=== PATIENT | male | born 1970 | race Caucasian/White ===

== ENCOUNTER → 2018-10-29 | Outpatient (CLI) | payer OTHER ==
[2018-10-29 11:02] LABS: HCT 46.7 % (39.0-53.0); HGB 15.2 gm/dL (13.0-17.5); MCH 29.4 pg (25.0-35.0); MCHC 32.6 g/dL (31.0-37.0); MCV 90.2 fL (80.0-100.0); Mean Platelet Volume 6.6; Platelet Count 266 k/uL (150-450); RBC 5.17 m/uL (4.30-5.90); RDW 14.7 % (11.5-15.5); WBC 6.1 k/uL (3.8-10.6)
[2018-10-29 15:35] LABS: African American GFR (CKD) 104.1 (60.0-200.0); Albumin 4.6 g/dL (3.80-4.90); Albumin/Globulin Ratio 2.88 (1.60-3.17); Anion Gap 6.3 mmol/L (4.00-12.00); Bilirubin, Conjugated 0.2 mg/dL (0.20-0.40); Bilirubin,Unconjugated 0.5 mg/dL; Calcium 9.5 mg/dL (8.7-10.3); Carbon Dioxide 26.7 mmol/L (21.6-31.8); Globulin 1.6 g/dL (1.6-3.3); Potassium 4.6 mmol/L (3.5-5.5); Total Bilirubin 0.7 mg/dL (0.2-1.2); Total Protein 6.2 g/dL (6.2-8.2)
[2018-11-01 18:21] LABS: Albumin, LC/MS/MS 4.5 g/dL (3.6-5.1); Testosterone, Free, LC/MS/MS 376.9 pg/mL (46.0-224.0); Testosterone, Total, LC/MS/MS 1821 ng/dL (250-1100)
== END | disposition home or self-care (01) ==
LOC: LABWHC1 10:31
PROVIDERS: ATTEND Urology
DX: E29.1 Testicular hypofunction (principal)
CPT/HCPCS: 36415; 80048; 80061; 80076; 82040; 82670; 84153; 84270; 84403; 85027

== ENCOUNTER → 2024-08-08 | Outpatient (CLI) | payer BC ==
[2024-08-08 15:36] LABS: Basophils # (A) 0.05 X 10*3/uL (0.00-0.10); Basophils % (A) 0.9 %; Eosinophils # (A) 0.14 X 10*3/uL (0.04-0.35); Eosinophils % (A) 2.6 %; HGB 15.5 g/dL (13.0-17.0); Lymphocytes # (A) 1.82 X 10*3/uL (0.90-5.00); Lymphocytes % (A) 34.4 %; MCH 29.6 pg (27.0-32.0); MCV 89.9 FL (80.0-97.0); Mean Platelet Volume 9.3 FL (9.5-12.2); Monocytes # (A) 0.52 X 10*3/uL (0.20-1.00); Monocytes % (A) 9.8 %; NRBC Per 100 WBC 0 X 10*3/uL (0.00-0.01); Neutrophils # (A) 2.75 X 10*3/uL (1.80-7.70); Neutrophils % (A) 52.1 %; Platelet Count 221 X 10*3/uL (140-440); RBC 5.23 X 10*6/uL (4.40-5.60); RDW 12.9 % (11.5-14.5); WBC 5.29 X 10*3/uL (4.50-10.00)
[2024-08-08 16:00] LABS: BUN/Creat Ratio 10.36 Ratio (12.00-20.00); Blood Urea Nitrogen 11.4 mg/dL (9.0-27.0); Chloride 105 mmol/L (96-109); Estradiol 25.5 pg/mL; Glucose 118 mg/dL (70-110); Potassium 4.8 mmol/L (3.5-5.5); Sodium 142 mmol/L (135-145)
[2024-08-08 16:01] LABS: ALT 41 U/L (10-49); AST 28 U/L (14-35); Albumin 4.7 g/dL (3.8-4.9); Albumin/Globulin Ratio 2.61 Ratio (1.60-3.17); Alkaline Phosphatase 65 U/L (41-126); Bilirubin, Conjugated <0.20 mg/dL (0.20-0.40); Bilirubin,Unconjugated >0.30 mg/dL (0.20-1.00); Calcium 9.9 mg/dL (8.7-10.3); Globulin 1.8 g/dL (1.6-3.3); Prostate Specific Antigen 1.26 ng/mL (0.000-3.500); Total Bilirubin 0.5 mg/dL (0.3-1.2); Total Protein 6.5 g/dL (6.2-8.2)
== END | disposition home or self-care (01) ==
LOC: LABWHC1 09:01
PROVIDERS: ATTEND Urology
DX: E29.1 Testicular hypofunction (principal)
CPT/HCPCS: 36415; 80048; 80076; 82670; 84153; 85025